=== PATIENT | male | born 1990 | race Caucasian/White ===

== ENCOUNTER 2018-11-26 14:25 | Emergency (ER) | payer BC, OTHER ==
[2018-11-26 14:45] VITALS: BP 127/79
[2018-11-26] MEDS ORDERED: Lidocaine 2% PF * 5 ML VIAL INJ ONE (15:44)
[2018-11-26] MEDS ORDERED: Tetan/Diph/Pertus SYR(Tdap)* 0.5 ML SYR(BOOSTRIX) use SYR IM ONE (15:44)
--- NOTE | 2018-11-26 15:55 | UC ---
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 Unknown tetanus- believes between 5-7 years ago. States + bleeding after cut, controlled with pressure. full ROM of fingers, no decrease in strength, no other symptoms/ complaints. Due to liver disease, patient often has increased bleeding and decreased healing time. 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 - , children ?: No Onset/Duration: Sudden Onset, Lasting Hours Severity Initially: Moderate Severity Currently: Moderate Pain Intensity: 9 Pain Scale Used: 0-10 Numeric Character: Dull Alleviating Factor(s): Nothing Related History: Occupational Injury - Allergies/Home Medications Allergies/Adverse Reactions: Allergies Allergy/AdvReac Type Severity Reaction Status Date / Time No Known Allergies Allergy Verified 11/26/18 14:45 Home Medications: Home Medications Mesalamine [Delzicol] 400 mg PO BID 11/26/18 [History Confirmed 11/26/18] PMH/Surg Hx/FS Hx/Imm Hx Previously Healthy: Yes - Surgical History Surgical History: None Surgery Procedure, Year, and Place: COLONOSCOPY - Family History Known Family History: Negative: Cardiac Disease, Hypertension, Diabetes - Social History Alcohol Use: Rare Substance Use Type: None Smoking Status (MU): Heavy Every Day Tobacco Smoker Type: Cigarettes Have You Smoked in the Last Year: No When Did the Patient Quit Smoking/Using Tobacco: October 16, 2012 - Immunization History Most Recent Influenza Vaccination: 2012 Most Recent Tetanus Shot: unsure Most Recent Pneumonia Vaccination: never Review of Systems All Other Systems Reviewed And Are Negative: Yes Skin: Positive: Other - lacteration Musculoskeletal: Positive: Edema Is Patient Immunocompromised?: No Physical Exam Triage Information Reviewed: Yes Appearance: Well-Appearing, No Pain Distress, Well-Nourished Vital Signs: Initial Vital Signs Temp 99 F 11/26/18 14:41 Pulse 81 11/26/18 14:41 Resp 16 11/26/18 14:41 BP 127/79 11/26/18 14:41 Pulse Ox 100 11/26/18 14:41 Vital Signs Reviewed: Yes Eyes: Positive: Conjunctiva Clear Musculoskeletal Exam: Normal Musculoskeletal: Positive: Strength Intact, ROM Intact, No Edema Neurological Exam: Normal Psychological Exam: Normal Skin: Positive: Other - small 5mm laceration to L forearm, 5mm deep. no bleeding noted, non-tender around laceration. Full ROM of fingers, writs, elbow without difficulty. Procedures - Laceration/Wound Repair 1 Location: upper extremity - left forearm Description: Linear Anesthesia: 1.0%, Lido Length, Depth and Shape: 5mm x 5mm Betadine Prep?: No Laceration/Wound Explored: clean Closure: Single Layer Debridement: minimal Suture Type: Nylon Number of Sutures: 1 Layer Closure?: Yes Upper Extremity Course/Dx - Course Course Of Treatment: after time out with nurse, area was anesthetized with lidocaine 1 cc, 2% without complication, 1 simple interupted suture placed without complication, steri strip placed on top. Follow up for removal in 7 days. keep area covered. - Differential Dx/Diagnosis Differential Diagnosis/HQI/PQRI: Laceration Provider Diagnosis: Laceration Discharge - Sign-Out/Discharge Documenting (check all that apply): Patient Departure All imaging exams completed and their final reports reviewed: No Studies - Discharge Plan Condition: Good Disposition: HOME Patient Education Materials: Care For Your Stitches (ED), Laceration (ED) Referrals: Yaw Greene DO [Primary Care Provider] - Additional Instructions: - One suture to be removed in 7 days, may return for removal or have done by PCP - Keep area clean and dry - Tetanus given today - Return with redness, swelling, drainage or increase - Motrin as needed for pain - Billing Disposition and Condition Condition: GOOD Disposition: Home - Attestation Statements Provider Attestation: Patient not seen by me. I was available for consult.
== END 2018-11-26 16:40 | disposition home or self-care (01) ==
LOC: UCEAST 14:25
DX: S51.812A Laceration without foreign body of left forearm, initial encounter (principal); Z23 Encounter for immunization; F17.210 Nicotine dependence, cigarettes, uncomplicated; W27.8XXA Contact with other nonpowered hand tool, initial encounter; Y99.0 Civilian activity done for income or pay
CPT/HCPCS: 12001; 90471; 90715; 99211; G0463